=== PATIENT | female | born 2000 | race Caucasian/White ===

== ENCOUNTER 2019-09-30 08:25 | Emergency (ER) | payer MEDICAID, OTHER ==
[~2019-09-30] VITALS: Ht 154.9 cm; Wt 59.1 kg
[2019-09-30] MEDS ORDERED: IBUPROFEN 800 MG TABLET PO ONE (11:15)
[2019-09-30 12:21] VITALS: BP 109/78
== END 2019-09-30 12:21 | disposition home or self-care (01) ==
LOC: EMS 08:28
DX: M25.562 Pain in left knee (principal)
CPT/HCPCS: 29505

== ENCOUNTER 2019-10-09 08:54 | Emergency (ER) | payer MEDICAID ==
[~2019-10-09] VITALS: Ht 160 cm; Wt 59.1 kg
[2019-10-09] MEDS ORDERED: IBUP-2071 PO (09:09)
[2019-10-09 12:33] VITALS: BP 101/63
== END 2019-10-09 12:33 | disposition home or self-care (01) ==
LOC: EMS 08:56
DX: S83.91XA Sprain of unspecified site of right knee, initial encounter (principal); X50.1XXA Overexertion from prolonged static or awkward postures, initial encounter; Y93.89 Activity, other specified; Y92.89 Other specified places as the place of occurrence of the external cause; Y99.8 Other external cause status

== ENCOUNTER 2023-04-03 08:56 | Emergency (ER) | payer MEDICAID, OTHER ==
[~2023-04-03] VITALS: Ht 154.9 cm; Wt 63.6 kg
[~2023-04-03 08:56] MED LIST: IBUP-1493 PO
[2023-04-03 08:58] VITALS: BP 110/64; PULSE 75; RESP 16; TEMP 98.3
== END 2023-04-03 12:04 | disposition home or self-care (01) ==
LOC: EMS 08:56
DX: M25.572 Pain in left ankle and joints of left foot (principal)
CPT/HCPCS: 99283

== ENCOUNTER 2023-11-27 04:32 | Emergency (ER) | payer SELFPAY ==
[~2023-11-27] VITALS: Ht 154.9 cm; Wt 61.4 kg
[2023-11-27 04:36] VITALS: TEMP 97.7
[2023-11-27 05:28] LABS: COVID AG,FIA SOURCE NASAL SWAB
[2023-11-27 05:40] LABS: RAPID GROUP A STREP NEGATIVE (NEGATIVE)
[2023-11-27 05:50] LABS: INFLUENZA TYPE A NEGATIVE FOR TYPE A (NEGATIVE); INFLUENZA TYPE B NEGATIVE FOR TYPE B (NEGATIVE); SARS-COV2 (COVID) ANTIGEN,FIA Negative (Negative)
[2023-11-27] MEDS ORDERED: AZIT250T9 PO (05:56)
[2023-11-27 06:00] VITALS: BP 119/69; PULSE 84; RESP 18
== END 2023-11-27 06:15 | disposition home or self-care (01) ==
LOC: EMS 04:33
DX: J03.90 Acute tonsillitis, unspecified (principal); J32.9 Chronic sinusitis, unspecified; Z20.822 Contact with and (suspected) exposure to COVID-19
CPT/HCPCS: 87430; 87804; 99283